=== PATIENT | female | born 1955 | race Caucasian/White ===

== ENCOUNTER → 2018-06-19 20:53 | Outpatient (CLI) | payer BC ==
[2013-03-22 14:53] VITALS: BMI 18.8
[~2018-06-19 20:53] MED LIST: CLEOCIN HCL150 MG PO; LEXAPRO20 MG OR; MAXALT10 MG PO; PREMPRO 0.625/21 TAB PO; RESTASIS EYE DR30 EA EACH EYE; TOPAMAX100 MG PO
== END | disposition home or self-care (01) ==
LOC: D.MAMMO 13:00
DX: Z12.31 Encounter for screening mammogram for malignant neoplasm of breast (principal)

== ENCOUNTER 2020-01-16 16:00 | Outpatient (CLI) | payer BC ==
[2013-03-22 14:53] VITALS: BMI 18.8
== END 2020-01-16 17:00 | disposition home or self-care (01) ==
LOC: D.MAMMO 16:00
PROVIDERS: ATTEND Plastic Surgery
DX: Z12.31 Encounter for screening mammogram for malignant neoplasm of breast (principal)